=== PATIENT | male | born 1940 | race Caucasian/White ===

== ENCOUNTER 2017-05-21 19:16 | Emergency (ER) | payer MEDICARE, OTHER ==
[2017-05-21] MEDS: NS 500 ML IV ×2 (20:17→20:38)
[2017-05-21 20:23] LABS: ALBUMIN 3.6 GM/DL (3.2-5.2); ALBUMIN/GLOBULIN RATIO 1.06 (1.00-1.93); ALKALINE PHOSPHATASE 89 U/L (45-117); ALT/SGPT 20 U/L (12-78); ANION GAP 8 MEQ/L (8-16); AST/SGOT 9 U/L (7-37); BILIRUBIN,DIRECT 0.3 MG/DL (0.0-0.2); BLOOD UREA NITROGEN 15 MG/DL (7-18); CALCIUM LEVEL 8.7 MG/DL (8.8-10.2); CARBON DIOXIDE LEVEL 27 MEQ/L (21-32); CHLORIDE LEVEL 104 MEQ/L (98-107); CPK CREATINE PHOSPHOKINASE 39 U/L (39-308); CREATININE FOR GFR 0.97 MG/DL (0.70-1.30); GLOMERULAR FILTRATION RATE > 60.0 (>42); GLUCOSE, FASTING 141 MG/DL (70-100); LIPASE 44 U/L (73-393); POTASSIUM SERUM 3.8 MEQ/L (3.5-5.1); SODIUM LEVEL 139 MEQ/L (136-145); TROPONIN I < 0.02 NG/ML (< 0.10)
[2017-05-21 20:24] LABS: MB/CK RELATIVE INDEX 2.56 (< OR =4)
[2017-05-21 20:29] LABS: BASO % 0.2 % (0.0-1.0); EOS % 0.6 % (0.0-3.0); HEMATOCRIT 42.8 % (42.0-52.0); HEMOGLOBIN 14.7 g/dl (14.0-18.0); IMMATURE GRANULOCYTE % 0.4 % (0-3.0); LYMPH # 0.4 10^3/uL (1.5-4.5); LYMPH % 7.2 % (24.0-44.0); MEAN CORPUSCULAR HEMOGLOBIN 30.3 pg (27.0-33.0); MEAN CORPUSCULAR HGB CONC 34.3 g/dl (32.0-36.5); MEAN CORPUSCULAR VOLUME 88.2 fl (80.0-96.0); MONO # 0.6 10^3/uL (0.0-0.8); MONO % 11.9 % (0.0-5.0); NEUTROPHILS # 3.9 10^3/uL (1.8-7.7); NEUTROPHILS % 79.7 % (36.0-66.0); PLATELET COUNT, AUTOMATED 142 10^3/uL (150-450); RED BLOOD COUNT 4.85 10^6/uL (4.30-6.10); RED CELL DISTRIBUTION WIDTH 12.1 % (11.5-14.5); WHITE BLOOD COUNT 4.9 10^3/uL (4.0-10.0)
[2017-05-21 20:55] LABS: INFLUENZA A AMPLIFICATION NEGATIVE (NEGATIVE); INFLUENZA B AMPLIFICATION NEGATIVE (NEGATIVE)
== END 2017-05-21 21:51 | disposition home or self-care (01) ==
LOC: M ED 19:16
DX: K52.9 Noninfective gastroenteritis and colitis, unspecified (principal); E86.9 Volume depletion, unspecified; I10 Essential (primary) hypertension; E78.5 Hyperlipidemia, unspecified; Z79.899 Other long term (current) drug therapy; Z79.82 Long term (current) use of aspirin; Z79.890 Hormone replacement therapy
CPT/HCPCS: 70450

== ENCOUNTER 2018-06-29 18:52 | Emergency (ER) | payer MEDICARE, OTHER ==
[~2018-06-29] VITALS: Ht 170.2 cm; Wt 84.1 kg
[~2018-06-29 18:52] MED LIST: ASPI81TA85 PO; CYAN1000VL; FOLI1TAB11; LEVO112T2; LOSA50TA88; PRAV20TA2 PO
[2018-06-29 19:45] LABS: BASO % 0.4 % (0.0-1.0); EOS # 0.1 10^3/uL (0.0-0.50); EOS % 1.7 % (0.0-3.0); HEMATOCRIT 41.5 % (42.0-52.0); HEMOGLOBIN 14.4 g/dl (13.5-17.5); LYMPH # 0.6 10^3/uL (1.5-4.5); LYMPH % 13.3 % (24.0-44.0); MEAN CORPUSCULAR HEMOGLOBIN 30.8 pg (27.0-33.0); MEAN CORPUSCULAR HGB CONC 34.7 g/dl (32.0-36.5); MEAN CORPUSCULAR VOLUME 88.9 fl (80.0-96.0); MONO # 0.7 10^3/uL (0.0-0.8); MONO % 14.8 % (0.0-5.0); NEUTROPHILS # 3.3 10^3/uL (1.8-7.7); NEUTROPHILS % 69.4 % (36.0-66.0); PLATELET COUNT, AUTOMATED 153 10^3/uL (150-450); RED BLOOD COUNT 4.67 10^6/uL (4.30-6.10); WHITE BLOOD COUNT 4.7 10^3/uL (4.0-10.0)
[2018-06-29] MEDS ORDERED: SIMETHICONE 80 MG CHEW TAB PO ONE (19:45)
[2018-06-29] MEDS ORDERED: PANTOPRAZOLE 40MG INJ (PROTONIX) (C9113) IV ONE (19:45)
[2018-06-29] MEDS ORDERED: GI COCKTAIL 50ML BTL(HYOSCYAMINE/MAALOX/LIDOCAINE VISCOUS)(1:3:1) PO ONE (19:45)
--- NOTE | 2018-06-29 19:52 | REP ---
Portable chest, 07:38 p.m., single AP sitting view: Comparison is 01/08/2016. The lung salgado are clear. Cardiac size is upper normal. There are sternotomy wires, unchanged. The isak, mediastinum, skeletal structures are unremarkable. Impression: Essentially negative portable chest. Electronically Signed by Vaibhav Armenta MD 06/29/2018 07:44 P
[2018-06-29 20:14] LABS: ALBUMIN 3.9 GM/DL (3.2-5.2); ALT/SGPT 31 U/L (12-78); BILIRUBIN,DIRECT 0.2 MG/DL (0.0-0.2); BILIRUBIN,TOTAL 0.7 MG/DL (0.2-1.0); BLOOD UREA NITROGEN 18 MG/DL (7-18); CALCIUM LEVEL 9.1 MG/DL (8.8-10.2); CARBON DIOXIDE LEVEL 24 MEQ/L (21-32); CHLORIDE LEVEL 109 MEQ/L (98-107); CK-MB VALUE MASS < 1.0 NG/ML (<3.6); CPK CREATINE PHOSPHOKINASE 72 U/L (39-308); CREATININE FOR GFR 0.99 MG/DL (0.70-1.30); GLOMERULAR FILTRATION RATE > 60.0 (>42); GLUCOSE, FASTING 115 MG/DL (70-100); LIPASE 75 U/L (73-393); MB/CK RELATIVE INDEX 1.39 (< OR =4); POTASSIUM SERUM 4.1 MEQ/L (3.5-5.1); SODIUM LEVEL 142 MEQ/L (136-145); TOTAL PROTEIN 6.6 GM/DL (6.4-8.2); TROPONIN I < 0.02 NG/ML (< 0.10)
[2018-06-29] MEDS ORDERED: ISOVUE-370 76% 100ML VIAL (Q9967) As Ordered ONE (20:44)
--- NOTE | 2018-06-29 21:50 | ECGEPIP ---
Stationary ECG Study [facility] - ED Test Date: 2018-06-29 Pat Name: MONIKA TODD Department: Room: - Gender: M Media Promoter: MIGUEL : 1940 Requested By: Yajaira Pickard Order Number: [id number] Reading MD: Cora Uriostegui Measurements Intervals [place] Rate: 69 P: 52 LA: 153 QRS: 15 QRSD: 104 T: 95 QT: 396 QTc: 425 Interpretive Statements SINUS RHYTHM ST DEVIATION AND MODERATE T-WAVE ABNORMALITY, CONSIDER ISCHEMIA SIMILAR 10/05/12 Electronically Signed On 06-29-2018 21:50:17 EDT by Cora Uriostegui
--- NOTE | 2018-06-29 22:00 | REPVR ---
EXAM: CT Angiography Chest With Contrast EXAM DATE/TIME: 06/29/2018 8:55 PM CLINICAL HISTORY: 77 years old, male; Pain; Chest pain; Additional info: Cp TECHNIQUE: Imaging protocol: Axial computed tomographic angiography images of the chest with intravenous contrast using CT angiography protocol. Coronal and sagittal reformatted images were created and reviewed. 3D rendering: MIP reconstructed images were created and reviewed. Radiation optimization: All CT scans at this facility use at least one of these dose optimization techniques: automated exposure control; mA and/or kV adjustment per patient size (includes targeted exams where dose is matched to clinical indication); or iterative reconstruction. Contrast material: ISOVUE 370 Contrast volume: 75 ml Contrast route: IV COMPARISON: CR PORTABLE CHEST X-RAY 06/29/2018 7:37 PM FINDINGS: Pulmonary arteries: There is opacification of the pulmonary arteries with no evidence of pulmonary embolus. Aorta: There is opacification of the aorta which appears intact. Superior vena cava: 1 CM lymph node between the superior vena cava and trachea. Thyroid: Normal appearing thyroid. Lungs: There is a 4 mm and a 9 mm density of the right lung which may be the result of scarring or noncalcified granulomas. To exclude any possibility of a malignant nodule recommend followup CT scan in 6 months for reevaluation and to document stability. There is also a small 4 mm density in the left upper lung. Pleural space: No pneumothorax. No pleural effusion. Heart: The heart is normal in size and there is no evidence of pericardial effusion. IMPRESSION: 1. There is no evidence of pulmonary embolus. 2. 9 mm density and two 4 mm density or identified and possibly benign nodular densities. However to exclude any possibility of malignant nodule recommend followup CT scan in 6 months to document stability. Electronically signed by: Shaheed Booth On 06/29/2018 22:00:33 PM
[2018-06-29 22:41] LABS: CPK CREATINE PHOSPHOKINASE 60 U/L (39-308); MB/CK RELATIVE INDEX 1.67 (< OR =4); TROPONIN I < 0.02 NG/ML (< 0.10)
[2018-06-29] MEDS ORDERED: PROT1TAB2 PO (22:57)
[2018-06-29] MEDS ORDERED: SIME180C PO (22:57)
[2018-06-29 23:00] VITALS: BP 148/82
--- NOTE | 2018-06-30 15:31 | ECGEPIP ---
Stationary ECG Study [facility] - ED Test Date: 2018-06-29 Pat Name: MONIKA TODD Department: Room: - Gender: M Pharm Spec: gt : 1940 Requested By: Yajaira Pickard Order Number: [id number] Reading MD: Ben Harris Measurements Intervals [place] Rate: 63 P: 53 DC: 142 QRS: 13 QRSD: 108 T: 110 QT: 372 QTc: 382 Interpretive Statements SINUS RHYTHM ST DEVIATION AND MODERATE T-WAVE ABNORMALITY, CONSIDER ANTEROLATERAL ISCHEMIA No substantial change from tracing done 06-29-18 Electronically Signed On 06-30-2018 15:31:01 EDT by Ben Harris
--- NOTE | 2018-07-01 11:15 | ED PDOC ---
Post-Departure Follow-Up arielle louis faxed formal report of cta chest for fu Yajaira Castrejon MD Jul 01, 2018 11:15
== END 2018-06-29 23:09 | disposition home or self-care (01) ==
LOC: M ED 18:52
DX: K21.9 Gastro-esophageal reflux disease without esophagitis (principal); R91.1 Solitary pulmonary nodule; I10 Essential (primary) hypertension; E78.5 Hyperlipidemia, unspecified; Z95.1 Presence of aortocoronary bypass graft; Z79.899 Other long term (current) drug therapy; Z79.82 Long term (current) use of aspirin
CPT/HCPCS: 71045; 71275; 80048; 80076; 82550; 82553; 83690; 84484; 85025; 93005; 93041; 94760; 96374; 99285; C9113; Q9967

== ENCOUNTER → 2018-08-17 | Outpatient (CLI) | payer MEDICARE, OTHER ==
[~2018-08-17] MED LIST changes: +FISH1000 PO; +MULTCAP PO; +OMEP40CA2 PO; +OSTETAB2 PO; +PROT1TAB2 PO; +SIME180C PO
--- NOTE | 2018-08-17 09:12 | REP ---
RIGHT UPPER QUADRANT ULTRASOUND: Real-time sonographic evaluation of the right upper quadrant performed. Multiple gallstones are seen in the gallbladder. The gallbladder wall is thickened up to 7 mm. No free fluid is seen. There is no intrahepatic or extrahepatic biliary dilatation, common bile duct measuring 4 mm in diameter. The liver and pancreas demonstrate no gross mass, pancreas is not well seen due to overlying bowel gas. Right kidney demonstrates no hydronephrosis with normal size 10.8 cm in length. Visualized abdominal aorta is normal in caliber. IMPRESSION: Multiple gallstones in the gallbladder with diffuse gallbladder wall thickening up to 7 mm. No free fluid. No biliary dilatation. Patient is not tender at the site of the gallbladder with transducer pressure. Findings may represent chronic cholecystitis. Electronically Signed by Vaibhav Abrams MD 08/17/2018 02:10 P
== END ==
LOC: M RAD 06:16
PROVIDERS: ATTEND Internal Medicine Gastroenterology
DX: K80.20 Calculus of gallbladder without cholecystitis without obstruction (principal)

== ENCOUNTER 2018-09-12 09:39 | Day surgery (SDC) | payer MEDICARE, OTHER ==
[~2018-09-12] VITALS: Ht 167.6 cm; Wt 82.9 kg
[2018-09-12] MEDS: NS 1,000 ML IV ONE (06:45)
[2018-09-12] MEDS ORDERED: PROPOFOL 200 MG/20 ML VIAL As Ordered ONE ×2 (10:41→11:00)
[2018-09-12] MEDS ORDERED: LIDOCAINE 2% INJ 100 MG/5 ML SDV (FOR ANES.) As Ordered ONE (10:41)
--- NOTE | 2018-09-12 11:54 | ROOR ---
Patient Name: Qasim Garza Procedure Date: 09/12/2018 11:11 AM Date of : 1940 Age: 77 Room: [facility] Gender: Male Note Status: Finalized Procedure: Upper GI endoscopy Indications: Dyspepsia Providers: Corby Messina MD Referring MD: KANG CAMPOS NP Requesting Provider: Medicines: Monitored Anesthesia Care Complications: No immediate complications. Procedure: Pre-Anesthesia Assessment: - Prior to the procedure, a History and Physical was performed, and patient medications and allergies were reviewed. The patient is competent. The risks and benefits of the procedure and the sedation options and risks were discussed with the patient. All questions were answered and informed consent was obtained. Patient identification and proposed procedure were verified by the physician, the nurse and the anesthesiologist in the procedure room. Airway Examination: normal oropharyngeal airway and neck mobility. Respiratory Examination: clear to auscultation. CV Examination: normal. Prophylactic Antibiotics: The patient does not require prophylactic antibiotics. Prior Anticoagulants: The patient has taken no previous anticoagulant or antiplatelet agents. ASA Grade Assessment: III - A patient with severe systemic disease. After reviewing the risks and benefits, the patient was deemed in satisfactory condition to undergo the procedure. The anesthesia plan was to use monitored anesthesia care (MAC). Immediately prior to administration of medications, the patient was re-assessed for adequacy to receive sedatives. The heart rate, respiratory rate, oxygen saturations, blood pressure, adequacy of pulmonary ventilation, and response to care were monitored throughout the procedure. The physical status of the patient was re-assessed after the procedure. The Endoscope was introduced through the mouth, and advanced to the second part of duodenum. The upper GI endoscopy was accomplished without difficulty. The patient tolerated the procedure well. Findings: The Z-line was regular and was found 40 cm from the incisors. LA Grade A (one or more mucosal breaks less than 5 mm, not extending between tops of 2 mucosal folds) esophagitis with no bleeding was found in the distal esophagus. Biopsies were taken with a cold forceps for histology. Verification of patient identification for the specimen was done by the physician and nurse using the patient's name, date and medical record number. Estimated blood loss was minimal. Patchy moderate inflammation characterized by erosions, erythema and granularity was found in the gastric body and in the gastric antrum. Biopsies were taken with a cold forceps for Helicobacter pylori testing. A few 6 mm sessile polyps with no stigmata of recent bleeding were found in the gastric fundus and in the gastric body. Biopsies were taken with a cold forceps for histology. No gross lesions were noted in the duodenal bulb and in the second portion of the duodenum. Impression: - Z-line regular, 40 cm from the incisors. - LA Grade A reflux esophagitis. Biopsied. - Gastritis. Biopsied. - A few gastric polyps. Biopsied. - No gross lesions in the duodenal bulb and in the second portion of the duodenum. Recommendation: - Patient has a contact number available for emergencies. The signs and symptoms of potential delayed complications were discussed with the patient. Return to normal activities tomorrow. Written discharge instructions were provided to the patient. - High fiber diet. - Continue present medications. - Follow an antireflux regimen. - Await pathology results. - Telephone GI clinic for pathology results 1 - 2 weeks. Please call GI clinic @ [phone] for apppointment date and time. - Return to primary care physician. Corby Messina MD Corby Messina MD 09/12/2018 11:53:53 AM Electronically signed by Corby Messina MD Number of Addenda: 0 Note Initiated On: 09/12/2018 11:11 AM Estimated Blood Loss: Estimated blood loss was minimal.
--- NOTE | 2018-09-12 11:56 | ROOR ---
Patient Name: Qasim Garza Procedure Date: 09/12/2018 11:13 AM Date of : 1940 Age: 77 Room: [facility] Gender: Male Note Status: Finalized Procedure: Colonoscopy Indications: Screening for colorectal malignant neoplasm Providers: Corby Messina MD Referring MD: KANG CAMPOS NP Requesting Provider: Medicines: Monitored Anesthesia Care Complications: No immediate complications. Procedure: Pre-Anesthesia Assessment: - Prior to the procedure, a History and Physical was performed, and patient medications and allergies were reviewed. The patient is competent. The risks and benefits of the procedure and the sedation options and risks were discussed with the patient. All questions were answered and informed consent was obtained. Patient identification and proposed procedure were verified by the physician, the nurse and the anesthesiologist in the procedure room. Mental Status Examination: alert and oriented. Airway Examination: normal oropharyngeal airway and neck mobility. Respiratory Examination: clear to auscultation. CV Examination: normal. Prophylactic Antibiotics: The patient does not require prophylactic antibiotics. Prior Anticoagulants: The patient has taken no previous anticoagulant or antiplatelet agents. ASA Grade Assessment: III - A patient with severe systemic disease. After reviewing the risks and benefits, the patient was deemed in satisfactory condition to undergo the procedure. The anesthesia plan was to use monitored anesthesia care (MAC). Immediately prior to administration of medications, the patient was re-assessed for adequacy to receive sedatives. The heart rate, respiratory rate, oxygen saturations, blood pressure, adequacy of pulmonary ventilation, and response to care were monitored throughout the procedure. The physical status of the patient was re-assessed after the procedure. The Colonoscope was introduced through the anus and advanced to the terminal ileum, with identification of the appendiceal orifice and IC valve. The colonoscopy was performed without difficulty. The patient tolerated the procedure well. The quality of the bowel preparation was good. The terminal ileum, ileocecal valve, appendiceal orifice, and rectum were photographed. Scope insertion time was 3 minutes. Scope withdrawal time was 8 minutes. The total duration of the procedure was 11 minutes. Findings: The perianal and digital rectal examinations were normal. Two sessile polyps were found in the ascending colon and cecum. The polyps were 6 to 8 mm in size. These polyps were removed with a cold snare. Resection and retrieval were complete. Verification of patient identification for the specimen was done by the physician and nurse using the patient's name, date and medical record number. Estimated blood loss was minimal. Multiple small and large-mouthed diverticula were found from sigmoid to descending colon. There was no evidence of diverticular bleeding. Non-bleeding external and internal hemorrhoids were found during retroflexion. The hemorrhoids were medium-sized. Impression: - Two 6 to 8 mm polyps in the ascending colon and in the cecum, removed with a cold snare. Resected and retrieved. - Moderate diverticulosis from sigmoid to descending colon. There was no evidence of diverticular bleeding. - Non-bleeding external and internal hemorrhoids. Recommendation: - Patient has a contact number available for emergencies. The signs and symptoms of potential delayed complications were discussed with the patient. Return to normal activities tomorrow. Written discharge instructions were provided to the patient. - High fiber diet. - Continue present medications. - Await pathology results. - Repeat colonoscopy in 5-10 years for surveillance based on pathology results and depending on clinical and functional status. - Telephone GI clinic for pathology results 1 - 2 weeks. Please call GI clinic @ [phone] for apppointment date and time. - Return to primary care physician. Corby Messina MD Corby Messina MD 09/12/2018 11:56:36 AM Electronically signed by Corby Messina MD Number of Addenda: 0 Note Initiated On: 09/12/2018 11:13 AM Estimated Blood Loss: Estimated blood loss was minimal.
[2018-09-12 12:15] VITALS: BP 115/73
== END 2018-09-12 12:21 | disposition home or self-care (01) ==
LOC: M OPP 09:39
PROVIDERS: ATTEND Internal Medicine Gastroenterology
DX: D12.0 Benign neoplasm of cecum (principal); D12.2 Benign neoplasm of ascending colon; K57.30 Diverticulosis of large intestine without perforation or abscess without bleeding; K64.8 Other hemorrhoids; K21.0 Gastro-esophageal reflux disease with esophagitis; K29.70 Gastritis, unspecified, without bleeding; K31.7 Polyp of stomach and duodenum; R10.13 Epigastric pain; Z12.11 Encounter for screening for malignant neoplasm of colon

== ENCOUNTER 2018-11-22 10:09 | Day surgery (SDC) | payer MEDICARE, OTHER ==
[~2018-11-22] VITALS: Ht 167.6 cm; Wt 80.0 kg
[~2018-11-22 10:09] MED LIST changes: +CLOP75TA2 PO; +LR 1,000 ML IV ONE
[2018-11-22] MEDS ORDERED: BUPIVACAINE HCL 0.25% 30 ML VIAL As Ordered ONE (17:02)
[2018-11-22] MEDS ORDERED: ROCURONIUM BROMIDE 50 MG/5 ML VIAL As Ordered ONE ×2 (18:02→18:32)
[2018-11-22] MEDS ORDERED: MIDAZOLAM INJ 2 MG/2 ML VIAL (J2250) As Ordered ONE (18:02)
[2018-11-22] MEDS ORDERED: dexameTHASONE 4 MG/ML 1ML VIAL (J1100) As Ordered ONE (18:02)
[2018-11-22] MEDS ORDERED: PROPOFOL 200 MG/20 ML VIAL As Ordered ONE ×2 (18:02→18:55)
[2018-11-22] MEDS ORDERED: LIDOCAINE 2% INJ 100 MG/5 ML SDV (FOR ANES.) As Ordered ONE (18:02)
[2018-11-22] MEDS ORDERED: fentaNYL 250 MCG/5 ML INJECTION (J3010) As Ordered ONE (18:02)
[2018-11-22] MEDS ORDERED: ONDANSETRON 4MG/2ML VIAL (J2405) As Ordered ONE (18:02)
[2018-11-22] MEDS ORDERED: PHENYLephrine HCL 500 MCG/5 ML (100MCG/ML) SYRINGE (J2370) As Ordered ONE (18:10)
[2018-11-22] MEDS ORDERED: ePHEDrine SULFATE 25 MG/5 ML(5MG/ML) SYRINGE As Ordered ONE (18:10)
[2018-11-22] MEDS ORDERED: SUGAMMADEX SODIUM 500 MG/5 ML VIAL (BRIDION) As Ordered ONE (18:11)
[2018-11-22] MEDS ORDERED: ACETAMINOPHEN 1000MG 100ML IV BTL (OFIRMEV) (J0131 PER 10MG) As Ordered ONE (18:15)
[2018-11-22] MEDS ORDERED: fentaNYL 100 MCG/2 ML INJECTION (J3010) IV PRN (20:00)
[2018-11-22] MEDS ORDERED: oxyCODONE 5MG TAB PO PRN (20:00)
[2018-11-22] MEDS ORDERED: LR 1,000 ML IV SCH (20:00)
[2018-11-22] MEDS ORDERED: ONDANSETRON 4MG/2ML VIAL (J2405) IV PRN (20:00)
[2018-11-22] MEDS ORDERED: MORPHINE 10 MG/ML 1ML VIAL (J2270) IV PRN (20:00)
[2018-11-22] MEDS ORDERED: NORCO, ANEXSIA 5/325MG TABLET (HYDROcodone/ACETAMINOPHEN) PO PRN (21:00)
[2018-11-22] MEDS ORDERED: ACETAMINOPHEN TAB 650MG DOSE (2X325MG) PO PRN (21:00)
[2018-11-22 21:05] VITALS: BP 117/70
--- NOTE | 2018-11-24 11:15 | RO ---
DATE OF PROCEDURE: 11/22/2018 PREOPERATIVE DIAGNOSIS: Symptomatic gallstones. POSTOPERATIVE DIAGNOSIS: Symptomatic gallstones with extensive adhesions. PROCEDURE PERFORMED: Robotic-assisted laparoscopic cholecystectomy with lysis of adhesions. SURGEON: Dr. Conroy QUALITY ASSURANCE INTERN: ANESTHESIA: General. INDICATIONS FOR THE PROCEDURE: Patient is a 78-year-old man who had presented to the hospital with some severe epigastric pain several months ago. He underwent an evaluation that included a cardiac workup. He was found to have cholelithiasis with a thickened gallbladder at the time. He has now come for a laparoscopic cholecystectomy. OPERATIVE PROCEDURE: The patient was placed supine on the operating table. He was placed under general endotracheal anesthesia. The patient's abdomen was prepped and draped in a sterile fashion. 0.25% Marcaine was infiltrated at the trocar sites as needed. A short incision was made in the left upper quadrant and a Veress needle was inserted. After a positive hanging drop test, the abdomen was insufflated with carbon dioxide gas. An 8-mm Devin robotic Visiport was placed without difficulty. Initial examination showed no significant intra-abdominal adhesions. Three additional ports were placed across the abdomen just above into the left of the umbilicus, just below and to the right of the umbilicus and in the right lower quadrant. The patient was tilted to a reverse Trendelenburg position and rolled slightly to the left. The patient's cart of the da Devin XI robot was brought into position and the camera port was docked. Targeting took place and the additional trocars were then docked as well. Instruments were inserted. I then moved to the control console and proceeded with the robotic portion of the procedure. The edge of the liver was elevated and the fundus of the gallbladder was partially seen. The gallbladder was completely encased and adherent fibrofatty tissue consistent with a past history of acute cholecystitis. The fibrofatty tissue was carefully dissected free from the gallbladder beginning at the fundus and extending to the body and neck region. The dissection of the gallbladder neck was then undertaken. Fibrofatty tissues were opened using the hook cautery. The cystic duct and the cholecystic artery were both clearly identified. Both structures were doubly clipped with Hem-o-rita clips and divided with scissors. The gallbladder was then dissected free from the gallbladder bed using the hook cautery. The gallbladder was not perforated. The gallbladder was placed in an Endopouch. The right upper quadrant was inspected and there was no evidence of bleeding or bile leak. The robot was undocked and the patient was returned to a flat position. The abdomen was deflated and the trocars were all removed. The gallbladder was recovered through the medial right lower quadrant port, which required extending the skin incision and opening the anterior and posterior fascia of the rectus sheath. There were two large stones palpable in the gallbladder. The gallbladder wall appeared somewhat thickened but not acutely inflamed. The posterior sheath was closed with a running #2-0 Vicryl and the anterior sheath was also closed with Vicryl. The skin incisions were all closed with buried #5-0 Vicryl and Steri-Strips. Light dressings were applied. The patient tolerated the procedure well without apparent complication. He was awakened in the operating room, extubated and moved to the recovery room in stable condition.
== END 2018-11-22 21:15 | disposition home or self-care (01) ==
LOC: M SDC 10:09
PROVIDERS: ATTEND Surgery
DX: K80.10 Calculus of gallbladder with chronic cholecystitis without obstruction (principal); I25.10 Atherosclerotic heart disease of native coronary artery without angina pectoris; I25.2 Old myocardial infarction; E03.9 Hypothyroidism, unspecified; E78.5 Hyperlipidemia, unspecified; D64.9 Anemia, unspecified; Z95.1 Presence of aortocoronary bypass graft; Z79.82 Long term (current) use of aspirin; Z79.02 Long term (current) use of antithrombotics/antiplatelets; Z79.899 Other long term (current) drug therapy
CPT/HCPCS: 47562; 88304; J0131; J1100; J2250; J2370; J2405; J3010

== ENCOUNTER → 2018-11-30 | Outpatient (CLI) | payer MEDICARE, OTHER ==
[~2018-11-30] MED LIST changes: +ACET-897 PO; +AZIT500T2 PO; +CEFD1CAP8 PO; -CYAN1000VL; +CYAN1000VL IM; +FIBE625T PO; -FOLI1TAB11; +FOLI1TAB11 PO; -LEVO112T2; +LEVO112T2 PO; -LOSA50TA88; +LOSA50TA88 PO; -LR 1,000 ML IV ONE; +PRED5PAK2 PO
[2018-11-30 10:42] LABS: BASO % 0.3 % (0.0-1.0); EOS # 0.1 10^3/uL (0.0-0.5); EOS % 2.5 % (0.0-3.0); HEMATOCRIT 36.5 % (42.0-52.0); HEMOGLOBIN 12.7 g/dl (13.5-17.5); LYMPH % 5.3 % (24.0-44.0); MEAN CORPUSCULAR HEMOGLOBIN 29.7 pg (27.0-33.0); MEAN CORPUSCULAR HGB CONC 34.8 g/dl (32.0-36.5); MEAN CORPUSCULAR VOLUME 85.5 fl (80.0-96.0); MONO # 0.5 10^3/uL (0.0-0.8); NEUTROPHILS # 2.8 10^3/uL (1.5-8.5); NEUTROPHILS % 76.6 % (36.0-66.0); PLATELET COUNT, AUTOMATED 147 10^3/uL (150-450); RED BLOOD COUNT 4.27 10^6/uL (4.30-6.10); WHITE BLOOD COUNT 3.6 10^3/uL (4.0-10.0)
[2018-11-30 11:15] LABS: ALT/SGPT 39 U/L (12-78); BILIRUBIN,TOTAL 0.5 MG/DL (0.2-1.0); BLOOD UREA NITROGEN 16 MG/DL (7-18); CALCIUM LEVEL 8.6 MG/DL (8.8-10.2); CARBON DIOXIDE LEVEL 23 MEQ/L (21-32); CHLORIDE LEVEL 106 MEQ/L (98-107); CREATININE FOR GFR 0.98 MG/DL (0.70-1.30); GLOMERULAR FILTRATION RATE > 60.0 (>42); GLUCOSE, FASTING 122 MG/DL (70-100); POTASSIUM SERUM 3.8 MEQ/L (3.5-5.1); SODIUM LEVEL 139 MEQ/L (136-145); TOTAL PROTEIN 5.6 GM/DL (6.4-8.2)
[2018-11-30 11:29] LABS: LYMPH # 0.2 10^3/uL (1.5-5.0)
== END ==
LOC: M LAB 10:15
PROVIDERS: ATTEND Nurse Practitioner
DX: R50.9 Fever, unspecified (principal)

== ENCOUNTER 2018-12-04 18:45 | Inpatient (IN) | payer MEDICARE, OTHER ==
[~2018-12-04] VITALS: Ht 167.6 cm; Wt 76.0 kg
[~2018-12-04 18:45] MED LIST changes: -ACET-897 PO; -AZIT500T2 PO; -CEFD1CAP8 PO; -FIBE625T PO; -PRED5PAK2 PO
[2018-12-04] MEDS ORDERED: FIBE625T PO (20:03)
[2018-12-04] MEDS ORDERED: ACET-897 PO (20:12)
[2018-12-04] MEDS ORDERED: NS 1,000 ML IV ONE (20:15)
[2018-12-04] MEDS ORDERED: ACETAMINOPHEN 325 MG TAB PO ONE (20:15)
[2018-12-04 20:17] LABS: BASO % 0.2 % (0.0-1.0); EOS # 0.1 10^3/uL (0.0-0.5); EOS % 2.3 % (0.0-3.0); HEMOGLOBIN 11.9 g/dl (13.5-17.5); LYMPH % 2.7 % (24.0-44.0); MEAN CORPUSCULAR HEMOGLOBIN 29.5 pg (27.0-33.0); MEAN CORPUSCULAR VOLUME 86.6 fl (80.0-96.0); MONO # 0.4 10^3/uL (0.0-0.8); MONO % 7.3 % (0.0-5.0); NEUTROPHILS # 4.2 10^3/uL (1.5-8.5); NEUTROPHILS % 87.3 % (36.0-66.0); PLATELET COUNT, AUTOMATED 236 10^3/uL (150-450); RED BLOOD COUNT 4.04 10^6/uL (4.30-6.10); WHITE BLOOD COUNT 4.8 10^3/uL (4.0-10.0)
[2018-12-04 20:32] LABS: INR 1.19; PROTHROMBIN TIME 14.8 SECONDS (11.8-14.0)
[2018-12-04 20:33] LABS: PARTIAL THROMBOPLASTIN TIME 38.8 SECONDS (25.0-38.4)
[2018-12-04 20:40] LABS: ALBUMIN 2.9 GM/DL (3.2-5.2); ALT/SGPT 61 U/L (12-78); BILIRUBIN,DIRECT 0.3 MG/DL (0.0-0.2); BILIRUBIN,TOTAL 0.7 MG/DL (0.2-1.0); BLOOD UREA NITROGEN 14 MG/DL (7-18); CALCIUM LEVEL 8.8 MG/DL (8.8-10.2); CARBON DIOXIDE LEVEL 27 MEQ/L (21-32); CHLORIDE LEVEL 101 MEQ/L (98-107); CREATININE FOR GFR 0.89 MG/DL (0.70-1.30); GLOMERULAR FILTRATION RATE > 60.0 (>42); GLUCOSE, FASTING 106 MG/DL (70-100); LIPASE 108 U/L (73-393); POTASSIUM SERUM 4.5 MEQ/L (3.5-5.1); SODIUM LEVEL 136 MEQ/L (136-145); TOTAL PROTEIN 5.9 GM/DL (6.4-8.2)
[2018-12-04 20:44] LABS: LYMPH # 0.1 10^3/uL (1.5-5.0)
[2018-12-04 20:49] LABS: INFLUENZA A AMPLIFICATION NEGATIVE (NEGATIVE); INFLUENZA B AMPLIFICATION NEGATIVE (NEGATIVE)
[2018-12-04] MEDS ORDERED: ISOVUE-370 76% 100ML VIAL (Q9967) As Ordered ONE (21:21)
--- NOTE | 2018-12-04 22:05 | REPVR ---
EXAM: CT Chest With Contrast EXAM DATE/TIME: 12/04/2018 9:29 PM CLINICAL HISTORY: 78 years old, male; Fever; Additional info: Fever post delaney TECHNIQUE: Imaging protocol: Computed tomography of the chest with intravenous contrast. Radiation optimization: All CT scans at this facility use at least one of these dose optimization techniques: automated exposure control; mA and/or kV adjustment per patient size (includes targeted exams where dose is matched to clinical indication); or iterative reconstruction. Contrast material: ISOVUE 370; Contrast volume: 100 ml; Contrast route: IV; COMPARISON: CT ANGIO CHEST 06/29/2018 8:48 PM FINDINGS: Lungs: Patchy nonspecific ground-glass density within the lungs bilaterally. This is new compared to the prior study. Differential considerations include interstitial edema, atypical infection, and pneumonitis. Scattered lung nodules are identified bilaterally, with an overall progression compared to the previous exam. One of the larger nodules is visualized on series 201, image 37 within the right lower lobe measuring 8-9 mm. Pleural space: No pneumothorax. No pleural effusion. Heart: Coronary artery calcification. No cardiomegaly. Aorta: No aortic aneurysm. Lymph nodes: There is mild mediastinal and bilateral hilar lymphadenopathy. In the precarinal region on the right side, there is a 1.4 x 1.2 cm lymph node, without progression in size. Bones/joints: Hypertrophic degenerative changes are noted within the spine. Sternotomy wires are identified. Soft tissues: No acute abnormality. Gallbladder and bile ducts: The gallbladder is absent. There is stranding within the gallbladder fossa, likely due to recent postoperative change or inflammation. Pancreas: There is atrophy of the pancreas. Spleen: There is mild splenomegaly. The spleen measures 13.2 cm in the AP dimension. IMPRESSION: 1. Patchy nonspecific ground-glass density within the lungs bilaterally. This is new compared to the prior study. Differential considerations include interstitial edema, atypical infection, and pneumonitis. 2. Scattered lung nodules are identified bilaterally, with an overall progression compared to the previous exam. Malignant nodules cannot be excluded. One of the larger nodules is visualized within the right lower lobe measuring 8-9 mm. For patients at low risk (minimal or absent history of smoking and of other known risk factors), recommend CT at 3-6 months, then consider CT at 18-24 months. For patients at high risk (history of smoking or of other known risk factors), recommend CT at 3-6 months, then CT at 18-24 months. (Wali et al., Fleischner Society, 2017) 3. The gallbladder is absent. There is stranding within the gallbladder fossa, likely due to recent postoperative change or inflammation. 4. There is mild splenomegaly. 5. Additional findings described above. Electronically signed by: Keyon Mera On 12/04/2018 22:05:25 PM
--- NOTE | 2018-12-04 22:14 | REPVR ---
EXAM: CT Abdomen and Pelvis With Contrast EXAM DATE/TIME: 12/04/2018 9:29 PM CLINICAL HISTORY: 78 years old, male; Fever; Prior surgery; Surgery date: 3-7 days post-operative; Additional info: Fever since delaney TECHNIQUE: Imaging protocol: Computed tomography of the abdomen and pelvis with intravenous contrast. Radiation optimization: All CT scans at this facility use at least one of these dose optimization techniques: automated exposure control; mA and/or kV adjustment per patient size (includes targeted exams where dose is matched to clinical indication); or iterative reconstruction. Contrast material: ISOVUE 370; Contrast volume: 100 ml; Contrast route: IV; COMPARISON: No relevant prior studies available. FINDINGS: Liver: There is mild hypodense fatty infiltration of the liver. Mild hepatomegaly. The liver measures 18.3 cm in length. Gallbladder and bile ducts: The gallbladder is absent. There is stranding within the gallbladder fossa, likely due to recent postoperative change or inflammation. Pancreas: There is atrophy of the pancreas. Within the tail of the pancreas, there is a nodular focus of isodensity measuring 1.4 x 1.0 cm. This may represent an area of the pancreas without fatty infiltration, although a pancreatic lesion is difficult to exclude. Spleen: There is mild splenomegaly. The spleen measures 13.2 cm in the AP dimension. A small calcification is identified within the spleen. Adrenals: No mass. Kidneys and ureters: There is mild lobulation of the right kidney. No hydronephrosis bilaterally. No renal mass visualized. Stomach and bowel: Colonic diverticula are identified, without acute inflammatory stranding of the adjacent mesentery. Evaluation of bowel is limited by the absence of oral contrast. New line no bowel obstruction. Appendix: No evidence of appendicitis. Intraperitoneal space: No free air. No significant fluid collection. Vasculature: There is mild atherosclerotic calcification of the abdominal aorta and iliac arteries. No aneurysmal dilatation of the abdominal aorta. There is dilatation of the portal and splenic veins, consistent with portal hypertension. Lymph nodes: Nonspecific inguinal lymph nodes are identified bilaterally. No significant retroperitoneal or intrapelvic lymphadenopathy. Bladder: Unremarkable as visualized. Reproductive: The prostate is enlarged. Bones/joints: Hypertrophic degenerative changes are noted within the spine. Soft tissues: There is mild stranding of the subcutaneous tissues of the right ventral abdominal wall, which is likely postoperative or inflammatory. IMPRESSION: 1. The gallbladder is absent. There is stranding within the gallbladder fossa, likely due to recent postoperative change or inflammation. 2. Mild splenomegaly. 3. Mild hypodense fatty infiltration of the liver. Mild hepatomegaly. 4. There is dilatation of the portal and splenic veins, consistent with portal hypertension. 5. Diverticulosis. 6. The prostate is enlarged. 7. Within the tail of the pancreas, there is a nodular focus of isodensity measuring 1.4 x 1.0 cm. This may represent an area of the pancreas without fatty infiltration, although a pancreatic lesion is difficult to exclude. A nonemergent MRI of the abdomen with/without contrast is suggested. 8. Additional findings described above. Electronically signed by: Keyon Mera On 12/04/2018 22:14:21 PM
--- NOTE | 2018-12-05 00:17 | HPEPDOC ---
General Date of Admission 12/05/18 Date of Service: Dec 05, 2018 Primary Care Physician: Nancy Hooker N.P. Attending Physician: MELVIN KESSLER DO Chief Complaint The patient is a 78-year-old male admitted with a reason for visit of FEVER. Source: Patient Exam Limitations: No limitations Timing/Duration: Day(s) Severity: Moderate Associated Symptoms: Chest Pain, Cough, Fever, Chills, Loss of appetite, Shortness of breath, Weakness History of Present Illness Patient is 78 years old male with past mental history of coronary artery di seases, with double bypass surgery in 2007, GERD, hypertension, hyperlipidemia presented hospital with shortness of breath, fever, chills, loss of appetite and weakness. Patient stated that after cholecystectomy which was done 11/22/18 he developed shortness of breath and progressive weakness. Also he started having cough with sputum. He has been having intermittent fever with temperature around 102-103. Patient took Tylenol for fever. In emergency room patient was found to have on chest CAT scan patchy nonspecific ground-glass density within the lungs bilaterally. This is new compared to the prior study. Also he was found to have scattered lung nodules are identified bilaterally, with an overall progression compared to the previous exam. Malignant nodules cannot be excluded. One of the larger nodules is visualized within the right lower lobe measuring 8-9 mm. His white blood count with a normal limit, he doesn't have elevated lactic acid. Home Medications Scheduled Aspirin (Aspir 81) 81 Mg Tab, 81 MG PO DAILY, (Reported) Calcium Polycarbophil (Fibercon) 625 Mg Tablet, 2 TAB PO BID, (Reported) Cyanocobalamin (Cyanocobalamin Injection) 1,000 Mcg/1 Ml Inj, QMONTH, (Reported) Folic Acid (Folic Acid) 1 Mg Tab, DAILY, (Reported) Glucosam/Kai-Msm1/C/Shaheen/Bosw (Osteo Bi-Flex Caplet) 1 Each Tablet, 1 TAB PO DAILY, (Reported) Levothyroxine Sodium (Levothyroxine Sodium) 112 Mcg Tab, DAILY, (Reported) Losartan Potassium (Losartan Potassium) 50 Mg Tab, DAILY, (Reported) Multivitamin (Multivitamins) 1 Each Capsule, 1 CAP PO DAILY, (Reported) Mcbrides-3 Fatty Acids/Fish Oil (Fish Oil 1,000 mg Capsule) 1 Each Capsule, 1,000 MG PO DAILY, (Reported) Omeprazole (Omeprazole) 40 Mg Capsule.dr, 40 MG PO DAILY, (Reported) Pravastatin Sodium (Pravastatin Sodium) 20 Mg Tab, 40 MG PO DAILY, (Reported) Miscellaneous Medications Acetaminophen (Tylenol Extra Strength) 500 Mg Tablet, 500 MG PO, (Reported) Allergies Coded Allergies: No Known Allergies (Unverified , 11/10/18) Past Medical History Medical History Hemorrhoids, GERD, double bypass surgery, hypertension, hyperlipidemia Surgical History Cardiac Double bypass surgery in 2008 Cholecystectomy in 2019 Family History mother had skin cancer, father from heart attack Social History * Smoker: Denies Alcohol: Denies Drugs: denies A-FIB/CHADSVASC A-FIB History Current/History of A-Fib/PAF?: No Current PO Anticoag Therapy: No Review of Systems Constitutional: Reports: Chills, Fever, Weakness, Fatigue Eyes: Denies: Pain, Vision change ENT: Denies: Head Aches, Ear Pain Skin: Denies: Rash, Lesions Pulmonary: Reports: Dyspnea, Cough Cardiovascular: Denies: Chest Pain, Palpitations Gastrointestinal: Denies: Nausea, Vomiting Genitourinary: Denies: Dysuria, Frequency Hematologic: Denies: Bruising Endocrine: Denies: Polydipsia, Polyphagia Musculoskeletal: Denies: Neck Pain, Back Pain Neurological: Denies: Weakness, Numbness Psych: Reports: Mood Normal Physical Examination General Exam: Positive: Alert, Cooperative Eye Exam: Positive: PERRLA ENT Exam: Positive: Atraumatic Neck Exam: Positive: Supple; Negative: JVD Chest Exam: Positive: Diminished Heart Exam: Positive: Rate Normal Telemetry: Positive: No significant arrhythmia Abdomen Exam: Positive: Normal bowel sounds Extremity Exam: Negative: Clubbing, Cyanosis Skin Exam: Negative: Nl turgor and temperature Neuro Exam: Positive: Normal Gait, Strength at 5/5 X4 ext, Cranial Nerves 3-12 NL Psych Exam: Positive: Mental status NL Vital Signs Vital Signs Date Time Temp Pulse Resp B/P (MAP) Pulse Ox O2 Delivery O2 Flow Rate FiO2 12/04/18 23:49 96.5 55 16 102/60 (74) 98 Room Air Laboratory Data Labs 24H Laboratory Tests 2 12/04/18 20:00: Prothrombin Time 14.8H, Prothromb Time International Ratio 1.19, Activated Partial Thromboplast Time 38.8H 12/04/18 20:06: Immature Granulocyte % (Auto) 0.2, White Blood Count 4.8, Red Blood Count 4.04L, Hemoglobin 11.9L, Hematocrit 35.0L, Mean Corpuscular Volume 86.6, Mean Corpuscular Hemoglobin 29.5, Mean Corpuscular Hemoglobin Concent 34.0, Red Cell Distribution Width 12.8, Platelet Count 236, Neutrophils (%) (Auto) 87.3H, Lymphocytes (%) (Auto) 2.7L, Monocytes (%) (Auto) 7.3H, Eosinophils (%) (Auto) 2.3, Basophils (%) (Auto) 0.2, Neutrophils # (Auto) 4.2, Lymphocytes # (Auto) 0.1L, Monocytes # (Auto) 0.4, Eosinophils # (Auto) 0.1, Basophils # (Auto) 0.0, Nucleated Red Blood Cells % (auto) 0.0, Anion Gap 8, Glomerular Filtration Rate > 60.0, Lactic Acid Level 1.1, Blood Urea Nitrogen 14, Creatinine 0.89, Sodium Level 136, Potassium Level 4.5, Chloride Level 101, Carbon Dioxide Level 27, Calcium Level 8.8, Aspartate Amino Transf (AST/SGOT) 39H, Alanine Aminotransferase (ALT/SGPT) 61, Alkaline Phosphatase 263H, Total Bilirubin 0.7, Direct Bilirubin 0.3H, Total Protein 5.9L, Albumin 2.9L, Albumin/Globulin Ratio 0.97L, Lipase 108, Influenza Type A (RT-PCR) NEGATIVE, Influenza Type B (RT-PCR) NEGATIVE 12/04/18 20:21: Urine Color EVARISTO, Urine Appearance HAZY, Urine pH 5.0, Urine Specific [place] 1.024, Urine Protein NEGATIVE, Urine Glucose (UA) NEGATIVE, Urine Ketones NEGATIVE, Urine Blood NEGATIVE, Urine Nitrite NEGATIVE, Urine Bilirubin NEGATIVE, Urine Urobilinogen 0.2, Urine Leukocyte Esterase NEGATIVE, Urine WBC (Auto) 1, Urine RBC (Auto) 3, Urine Hyaline Casts (Auto) 0, Urine Bacteria (Auto) NEGATIVE, Urine Squamous Epithelial Cells 0, Urine Calcium Oxalate Cryst (Auto) MODERATE, Urine Mucus (Auto) SMALL, Urine Sperm (Auto) CBC/BMP Laboratory Tests 12/04/18 20:06 Red Blood Count 4.04 L, Mean Corpuscular Volume 86.6, Mean Corpuscular Hemoglobin 29.5, Mean Corpuscular Hemoglobin Concent 34.0, Red Cell Distribution Width 12.8, Neutrophils (%) (Auto) 87.3 H, Lymphocytes (%) (Auto) 2.7 L, Monocytes (%) (Auto) 7.3 H, Eosinophils (%) (Auto) 2.3, Basophils (%) (Auto) 0.2, Neutrophils # (Auto) 4.2, Lymphocytes # (Auto) 0.1 L, Monocytes # (Auto) 0.4, Eosinophils # (Auto) 0.1, Basophils # (Auto) 0.0, Calcium Level 8.8, Aspartate Amino Transf (AST/SGOT) 39 H, Alanine Aminotransferase (ALT/SGPT) 61, Alkaline Phosphatase 263 H, Total Bilirubin 0.7, Direct Bilirubin 0.3 H, Total Protein 5.9 L, Albumin 2.9 L Microbiology Microbiology 12/04/18 Blood Culture, Received Pending 12/04/18 Blood Culture, Received Pending Assessment/Plan Patient is 78 years old male with past medical history of double bypass, hyperlipidemia presented hospital with cough, shortness of breath, patient was found to have bilateral groundglass densities of his lungs on the CAT scan Problems (1) Pneumonia Status: Acute Problem Text: Most likely community-acquired pneumonia which patient developed after upper respiratory viral infection CAT scan shows bilateral groundglass opacities, could represent atypicals. Azithromycin IV, ceftriaxone IV Prednisone 40 mg by mouth Incentive spirometry Urine antigen Streptococcus/Legionella Mycoplasma immunoglobin M (2) Lung nodule seen on imaging study Status: Chronic Problem Text: Chest CT showed scattered lung nodules are identified bilaterally, with an overall progression compared to the previous exam. Malignant nodules cannot be excluded. Patient has never had history of smoking. Patient will need repeat CAT scan in 3-6 months. Follow-up with oncologist in the outpatient settings (3) Pancreatic abnormality Status: Chronic Problem Text: Patient was found to have on the abdominal CAT scan within the tail of the pancreas, there is a nodular focus of isodensity measuring 1.4 x 1.0 cm. This may represent an area of the pancreas without fatty infiltration, although a pancreatic lesion is difficult to exclude. A nonemergent MRI of the abdomen with/without contrast in the outpatient settings Plan / VTE VTE Prophylaxis Ordered?: Yes MELVIN KESSLER DO Dec 05, 2018 00:17
[2018-12-05] MEDS: NS 1,000 ML IV SCH ×2 (00:37→11:18)
[2018-12-05] MEDS: cefTRIAXone SOD 2 GM in D5W MINI-BAG PLUS 50 ML IV SCH (00:37)
[2018-12-05] MEDS: AZITHROMYCIN INJ 500 MG, VIAL MATE ADAPTER 1 EACH in D5W 250 ML IV SCH (04:11)
[2018-12-05 04:50] VITALS: BP 134/71
--- NOTE | 2018-12-05 07:25 | REP ---
PA and lateral chest: Comparison is the portable chest dated 06/29/2018. There is mild interstitial coarsening as an interval change. There are sternotomy wires. This is unchanged. Cardiac size is upper normal, unchanged. The isak, mediastinum, skeletal structures are unremarkable. Impression: Mild interstitial coarsening as an interval change. Electronically Signed by Vaibhav Armenta MD 12/05/2018 07:16 A
[2018-12-05 08:00] VITALS: BP 134/74
--- NOTE | 2018-12-05 08:40 | IPNPDOC ---
Text Note Date of Service The patient was seen on 12/05/18. NOTE HPI: Patient is 78 yo male with PMH of CAD with double bypass surgery in 2007, GERD, HTN, hyperlipidemia, and recent cholecystectomy 11/22/18 presented [facility] due to d yspnea, productive cough, night sweats, fever, chills, loss of appetite and weakness that had been developing since then. Reported intermittent fever around 102 [id number]. Pt currently still reporting productive cough with generalized weakness and decreased appetite. Reported night sweats the night prior. He reported constipation, stating only had 2 BM since the cholecystectomy surgery ROS: General: pos for fever and night sweats. Pos for generalized weakness Lung: pos for productive cough Heart: denies chest pain, palpitation GI: pos for loss appetite, constipation, denies diarrhea and hematochezia Objective: General: alert and awake, not in acute distress Heart: RRR, no murmur, normal S1 and S2 Lung: RLQ coarse crackles, no wheezing or rhonchi Abdomen: soft, bowel sound aus in 4 quad, no tenderness in all 4 quad, no guarding or distention. No accessory muscle use noted Extremities: no edema. No tenderness in b/l LE Assessment and Plan: 1. Pneumonia -recent hospital visit 11/22/18 -CT chest shows bilateral ground glass opacities -Per team discussion, as pt symptomatically improving, we will cont Azithromycin IV and Ceftriaxone IV at this time -Cont Prednisone 40 mg QD at this time, consider down-titrating -Cont Incentive spirometry -Urine antigen Streptococcus/Legionella, and mycoplasma immunoglobin M pending 2. Scattered lung nodule bilaterally -Chest CT showed scattered lung nodules are identified bilaterally, with an overall progression compared to the previous exam. Malignant nodules cannot be excluded -No history of smoking, repeat CT chest scan in 3-6 months outpatient - Discussed the results of imaging with the patient was verbalized understanding; has acknowledged the importance of follow-up imaging 3. Medical history of CAD s/p double bypass surgery -Resume home med statin, aspirin, and Losartan 4. Hypertension -resume home med Lorsartan and statin 5. hyperlipidemia - home med statin 6. Pancreatic abnormality - abdominal CT shows a nodular focus of isodensity measuring 1.4 x 1.0 cm within the tail of the pancreas, there is a which may be fatty infiltration but a pancreatic lesion is difficult to exclude. -consider nonemergent MRI of the abdomen with/without contrast outpt - Discussed the results of imaging with the patient was verbalized understanding; has acknowledged the importance of follow-up imaging DVT prophylaxis: heparin Regular diet VS,Fishbone, I+O VS, Fishbone, I+O Laboratory Tests 12/04/18 20:06 Red Blood Count 4.04 L, Mean Corpuscular Volume 86.6, Mean Corpuscular Hemoglobin 29.5, Mean Corpuscular Hemoglobin Concent 34.0, Red Cell Distribution Width 12.8, Neutrophils (%) (Auto) 87.3 H, Lymphocytes (%) (Auto) 2.7 L, Monocytes (%) (Auto) 7.3 H, Eosinophils (%) (Auto) 2.3, Basophils (%) (Auto) 0.2, Neutrophils # (Auto) 4.2, Lymphocytes # (Auto) 0.1 L, Monocytes # (Auto) 0.4, Eosinophils # (Auto) 0.1, Basophils # (Auto) 0.0, Calcium Level 8.8, Aspartate Amino Transf (AST/SGOT) 39 H, Alanine Aminotransferase (ALT/SGPT) 61, Alkaline Phosphatase 263 H, Total Bilirubin 0.7, Direct Bilirubin 0.3 H, Total Protein 5.9 L, Albumin 2.9 L Vital Signs Date Time Temp Pulse Resp B/P (MAP) Pulse Ox O2 Delivery O2 Flow Rate FiO2 12/05/18 04:50 98.1 78 18 134/71 (92) 95 12/04/18 23:49 Room Air I&O- Last 24 Hours up to 6 AM 12/05/18 06:00 Intake Total 1000 ml Output Total 175 ml Balance 825 ml GME ATTESTATION GME ATTESTATION My faculty preceptor for this patient encounter was physically present during the encounter and was fully available. All aspects of the patient interview, e xamination, medical decision making process, and medical care plan development were reviewed and approved by the faculty preceptor. The faculty preceptor is aware and concurs with the plan as stated in the body of this note and will attest to such by his/her cosignature. ATTENDING NOTE I, Shania Ansari, have independently examined this patient and performed my own physical exam, as well as reviewed the documentation and edited where necessary. I have discussed in detail with the resident / student the findings and plan of treatment as documented by the resident / student and edited their note. I agree with their findings and treatment plan and have edited their documentation. I will continue to follow the patient during this hospital stay. JACK AVENDANO DO Dec 05, 2018 08:40 SHANIA ANSARI MD Dec 05, 2018 15:32
[2018-12-05] MEDS: OMEPRAZOLE 20 MG CAP PO SCH ×2 (09:15→20:21)
[2018-12-05] MEDS: predniSONE 20 MG TAB PO SCH (09:16)
[2018-12-05] MEDS: OMEGA-3 1000MG CAPSULE PO SCH (09:16)
[2018-12-05] MEDS: MULTIVITAMINS/MINERALS THERAP 1 TAB PO SCH (09:16)
[2018-12-05] MEDS: HEPARIN SOD (PORCINE) 5000 UNITS/ML VIAL SC SCH ×2 (09:18→20:21)
[2018-12-05] MEDS ORDERED: POLYETHYLENE GLYCOL (MIRALAX) 238GM BOTTLE PO ONE (10:00)
[2018-12-05] MEDS: LEVOTHYROXINE 112MCG TABLET (0.112MG) PO SCH (11:17)
[2018-12-05] MEDS ORDERED: MIRALAX *UNIT DOSE* 17GM PACKET PO PRN (11:30)
[2018-12-05 12:00] VITALS: BP 119/69
[2018-12-05 16:00] VITALS: BP 108/64
[2018-12-05] MEDS ORDERED: SLF 3 ML SYR IV PRN (16:00)
[2018-12-05 20:00] VITALS: BP 126/68
[2018-12-05 20:22] VITALS: BP 126/68
[2018-12-05] MEDS: SLF 3 ML SYR IV SCH (20:22)
[2018-12-05] MEDS ORDERED: ASPIRIN 81 MG ENTERIC TAB PO SCH (21:00)
[2018-12-05] MEDS ORDERED: FOLIC ACID 1 MG TAB PO SCH (21:00)
[2018-12-05] MEDS ORDERED: FIBER-CON 625 MG TAB PO SCH (21:00)
[2018-12-05] MEDS ORDERED: PRAVASTATIN 20 MG TAB PO SCH (21:00)
[2018-12-05] MEDS ORDERED: LOSARTAN 50 MG TAB PO SCH (21:00)
[2018-12-06] MEDS: cefTRIAXone SOD 2 GM in D5W MINI-BAG PLUS 50 ML IV SCH (01:44)
[2018-12-06] MEDS: AZITHROMYCIN INJ 500 MG, VIAL MATE ADAPTER 1 EACH in D5W 250 ML IV SCH (03:52)
[2018-12-06 04:00] VITALS: BP 122/62
[2018-12-06] MEDS: SLF 3 ML SYR IV SCH (05:39)
[2018-12-06] MEDS: LEVOTHYROXINE 112MCG TABLET (0.112MG) PO SCH (05:39)
[2018-12-06 05:53] LABS: HEMATOCRIT 30.7 % (42.0-52.0); HEMOGLOBIN 10.3 g/dl (13.5-17.5); MEAN CORPUSCULAR HEMOGLOBIN 28.5 pg (27.0-33.0); MEAN CORPUSCULAR HGB CONC 33.6 g/dl (32.0-36.5); MEAN CORPUSCULAR VOLUME 84.8 fl (80.0-96.0); PLATELET COUNT, AUTOMATED 225 10^3/uL (150-450); RED BLOOD COUNT 3.62 10^6/uL (4.30-6.10); WHITE BLOOD COUNT 4.1 10^3/uL (4.0-10.0)
[2018-12-06 06:11] LABS: BLOOD UREA NITROGEN 12 MG/DL (7-18); CALCIUM LEVEL 8.8 MG/DL (8.8-10.2); CARBON DIOXIDE LEVEL 25 MEQ/L (21-32); CHLORIDE LEVEL 107 MEQ/L (98-107); CREATININE FOR GFR 0.77 MG/DL (0.70-1.30); GLOMERULAR FILTRATION RATE > 60.0 (>42); GLUCOSE, FASTING 134 MG/DL (70-100); MAGNESIUM LEVEL 2.5 MG/DL (1.8-2.4); POTASSIUM SERUM 3.2 MEQ/L (3.5-5.1); SODIUM LEVEL 139 MEQ/L (136-145)
[2018-12-06] MEDS: OMEPRAZOLE 20 MG CAP PO SCH (08:00)
[2018-12-06] MEDS: MULTIVITAMINS/MINERALS THERAP 1 TAB PO SCH (08:00)
[2018-12-06] MEDS: predniSONE 20 MG TAB PO SCH (08:00)
[2018-12-06] MEDS: HEPARIN SOD (PORCINE) 5000 UNITS/ML VIAL SC SCH (08:00)
[2018-12-06] MEDS ORDERED: POTASSIUM CHLORIDE 10 MEQ SR TABLET PO ONE (08:00)
[2018-12-06] MEDS: OMEGA-3 1000MG CAPSULE PO SCH (08:00)
[2018-12-06] MEDS ORDERED: MIRALAX *UNIT DOSE* 17GM PACKET PO PRN (09:00)
[2018-12-06] MEDS ORDERED: PRED5PAK2 PO (11:26)
[2018-12-06] MEDS ORDERED: AZIT500T2 PO (11:26)
[2018-12-06] MEDS ORDERED: CEFD1CAP8 PO (11:26)
--- NOTE | 2018-12-06 11:34 | DS.PDOC ---
Discharge Summary General Date of Admission Dec 05, 2018 at 03:24 Date of Discharge 12/06/18 Discharge Summary PROCEDURES PERFORMED DURING STAY: None. 1. Pneumonia 2. Lung nodule seen on imaging study 3. Pancreatic abnormality DISCHARGE DIAGNOSES: 1. Pneumonia 2. Scattered lung nodule bilaterally 3. Medical history of CAD s/p double bypass surgery 4. Hypertension 5. hyperlipidemia 6. Pancreatic abnormality COMPLICATIONS/CHIEF COMPLAINT: Lung Nodule, Pneumonia, Pancreatic Abnormality. HISTORY OF PRESENT ILLNESS: Patient is 78 yo male with PMH of CAD with double bypass surgery in 2007, GERD, HTN, hyperlipidemia, and recent cholecystectomy 11/22/18 presented [facility] due to dyspnea, productive cough, night sweats, fever, chills, loss of appetite and weakness that had been developing since then. Reported intermittent fever around 102 [id number]. HOSPITAL COURSE: His CT chest shows bilateral ground glass opacities; scattered lung nodule bilaterally with overall progression compared to the previous exam was also noted. His CT abd/pelvis shows a nodular isodensity lesion at the tail of the pancreas. Pt was admitted to the hospital and was started on Ceftriaxone and Azithromycin as well as prednisone. His symptoms including fever, chills, night sweats, cough, generalized weakness, and nausea improved. He initially reported constipation as he only had 2 BM since the cholecystectomy, and Miralax was started. Discussed extensively with patient regarding his CT chest and abd/pelvis result, and he was aware of the lung nodule stating he has been following a pulm outpt. Discussed with patient that per recommendation based on CT chest result; repeat CT chest in 3-6 months is recommended. Pt is also discussed about his pancreatic tail nodular isodensity lesion and verbalized he will discuss the imaging abnormality with his PCP and service aide. On the day of discharge, pt reported no symptoms including non-productive cough and stated he had 2 BM the day prior to discharge. It was noted that pt had hypokalemia thus KCl was repleted. DISCHARGE MEDICATIONS: Please see below. ALLERGIES: Please see below. PHYSICAL EXAMINATION ON DISCHARGE: VITAL SIGNS: Please see below. GENERAL: A&OX3, not in acute distress, pleasant and cooperative HEENT: Head normocephalic, atraumatic NECK: supple CARDIOVASCULAR EXAMINATION: RRR, no murmur, normal S1 and S2 RESPIRATORY EXAMINATION: CTA b/l, no rales, wheezing, or rhonchi ABDOMINAL EXAMINATION: soft, bowel sound aus in all quad, no guarding or d istention EXTREMITIES: no edema or tenderness NEUROLOGICAL EXAMINATION: Memory and cognitive fx grossly intact PSYCHIATRIC EXAMINATION: Mood stable and appropriate to situation LABORATORY DATA: Please see below. IMAGING: CT chest: New patchy lung ground-glass density bilaterally. Scattered lung n odules bilaterally progressed compared to the previous exam; one of the larger nodules on right lower lobe measuring 8-9 mm; recommend CT at 3-[address] abd/pelvis abdominal CT shows a nodular focus of isodensity measuring 1.4 x 1.0 cm within the tail of the pancreas; fatty infiltration but a pancreatic lesion is difficult to exclude. PROGNOSIS: Fair to good ACTIVITY: As tolerated. DIET: 2g Na diet DISCHARGE PLAN AND INSTRUCTIONS: Please follow up with PCP in 7 days. Please follow up with service aide within 7- 10 days. Patient will discuss with PCP and service aide for lung nodules and pancreatic isodensity lesions which he verbalized understanding and agreement. Patient will finish the Cefdinir, Azithromycin, and steroid taper pack as prescribed ITEMS TO FOLLOWUP ON ON OUTPATIENT: 1. Pneumonia 2. Lcattered lung nodule bilaterally 3. Pancreatic abnormality DISCHARGE CONDITION: Stable. I saw and evaluated the patient. I agree with the findings and plan of care as d ocumented in the documenters note. I spent 45 minutes coordinating this patient's discharge. Vital Signs/I&Os Vital Signs Date Time Temp Pulse Resp B/P (MAP) Pulse Ox O2 Delivery O2 Flow Rate FiO2 12/06/18 08:00 97.1 54 20 96 12/06/18 04:00 122/62 (82) 12/04/18 23:49 Room Air I&O- Last 24 Hours up to 6 AM 12/06/18 05:59 Intake Total 2885 ml Output Total 2850 ml Balance 35 ml Laboratory Data Labs 24H Laboratory Tests 2 12/06/18 05:00: Nucleated Red Blood Cells % (auto) 0.0, Anion Gap 7L, Glomerular Filtration Rate > 60.0, Blood Urea Nitrogen 12, Creatinine 0.77, Sodium Level 139, Potassium Level 3.2#L, Chloride Level 107, Carbon Dioxide Level 25, Calcium Level 8.8, Magnesium Level 2.5H CBC/BMP Laboratory Tests 12/06/18 05:00 Red Blood Count 3.62 L, Mean Corpuscular Volume 84.8, Mean Corpuscular Hemoglo bin 28.5, Mean Corpuscular Hemoglobin Concent 33.6, Red Cell Distribution Width 12.7, Calcium Level 8.8 Microbiology Microbiology 12/04/18 Blood Culture - Preliminary, Resulted No growth after 24 hours . All specim... 12/04/18 Blood Culture - Preliminary, Resulted No growth after 24 hours . All specim... 12/05/18 MRSA Screen, Received Pending 12/05/18 Respiratory Virus Panel (PCR) (JUAN) - Final, Complete Discharge Medications Scheduled Aspirin (Aspir 81) 81 Mg Tab, 81 MG PO QPM, (Reported) Azithromycin (Azithromycin) 500 Mg Tablet, 1 TAB PO DAILY Calcium Polycarbophil (Fibercon) 625 Mg Tablet, 625 MG PO QPM, (Reported) Cefdinir (Cefdinir) 300 Mg Capsule, 300 MG PO BID Cyanocobalamin (Cyanocobalamin Injection) 1,000 Mcg/1 Ml Inj, 1,000 MCG IM QMONTH, (Reported) Folic Acid (Folic Acid) 1 Mg Tab, 1 MG PO QPM, (Reported) Glucosam/Kai-Msm1/C/Shaheen/Bosw (Osteo Bi-Flex Caplet) 1 Each Tablet, 1 TAB PO QPM, (Reported) Levothyroxine Sodium (Levothyroxine Sodium) 112 Mcg Tab, 112 MCG PO QAM, (Reported) Losartan Potassium (Losartan Potassium) 50 Mg Tab, 50 MG PO QHS, (Reported) Multivitamin (Multivitamins) 1 Each Capsule, 1 CAP PO QPM, (Reported) Felicity-3 Fatty Acids/Fish Oil (Fish Oil 1,000 mg Capsule) 1 Each Capsule, 1,000 MG PO QPM, (Reported) Omeprazole (Omeprazole) 40 Mg Capsule.dr, 40 MG PO BID, (Reported) Pravastatin Sodium (Pravastatin Sodium) 20 Mg Tab, 40 MG PO QHS, (Reported) Prednisone (Prednisone) 5 Mg Tab.ds.pk, 0 PO ASDIRECTED 6 day dose pack taper Scheduled PRN Acetaminophen (Tylenol Extra Strength) 500 Mg Tablet, 500 MG PO Q4H PRN for PAIN / FEVER, (Reported) Allergies Coded Allergies: No Known Allergies (Unverified , 11/10/18) JACK AVENDANO DO Dec 06, 2018 11:34 GONZALO CHURCH MD Dec 07, 2018 12:07
[2018-12-09 00:06] LABS: BODY FLUID CULTURE Not Indicated (.); LEGIONELLA ANTIGEN URINE Negative (Negative); ORGANISM ID Not indicated. (.); SPECIMEN SOURCE Urine (.); URINE STREP PNEUMONIAE ANTIGEN Negative (Negative)
== END 2018-12-06 13:43 | disposition home or self-care (01) | DRG 195 ==
LOC: M ED 18:45 → M ED INP 12-05 03:24 → M PCU 12-05 04:57
PROVIDERS: ADMIT Internal Medicine; ATTEND Internal Medicine
DX: J18.9 Pneumonia, unspecified organism (principal); R91.8 Other nonspecific abnormal finding of lung field; K86.89 Other specified diseases of pancreas; I25.10 Atherosclerotic heart disease of native coronary artery without angina pectoris; K21.9 Gastro-esophageal reflux disease without esophagitis; I10 Essential (primary) hypertension; E87.6 Hypokalemia; E78.5 Hyperlipidemia, unspecified; Z95.1 Presence of aortocoronary bypass graft; Z79.82 Long term (current) use of aspirin; Z79.899 Other long term (current) drug therapy; Z90.49 Acquired absence of other specified parts of digestive tract

== ENCOUNTER → 2018-12-30 | Outpatient (CLI) | payer MEDICARE, OTHER ==
[~2018-12-30] MED LIST changes: +ACET-897 PO; +AZIT500T5 PO; +CEFD1CAP8 PO; +FIBE625T PO; -OMEP40CA2 PO; +OMEP40CA97 PO; +PRED5PAK2 PO; +PROHANCE 279.3MG/ML 15ML VIAL (A9576) As Ordered ONE
--- NOTE | 2018-12-30 17:30 | REP ---
MRI ABDOMEN WITH AND WITHOUT CONTRAST: MRI abdomen performed with special attention to the pancreas. TECHNIQUE: Multiple sequences obtained in the axial and coronal planes prior to and following the intravenous administration of 14 mL ProHance. Correlation made with prior CT, 12/04/2018, which showed possible lesion in the tail of the pancreas. The pancreas shows diffuse fatty infiltration. There is relative sparing at the distal tail of the pancreas. There is no mass at this location. There is no pancreatic duct dilatation. The common bile duct is normal in caliber. The patient has had a prior cholecystectomy. Liver, spleen, adrenals, and kidneys are otherwise unremarkable. There is no adenopathy or free fluid in the abdomen. IMPRESSION: Diffuse fatty replacement of the pancreas. No evidence of pancreatic mass or adenopathy. Electronically Signed by Vaibhav Abrams MD 01/03/2019 08:59 A
== END ==
LOC: M RAD 15:26
PROVIDERS: ATTEND Nurse Practitioner Family
DX: R10.9 Unspecified abdominal pain (principal)
CPT/HCPCS: 74183; A9576

== ENCOUNTER → 2019-01-02 | Outpatient (CLI) | payer MEDICARE, OTHER ==
[~2019-01-02] MED LIST changes: -PROHANCE 279.3MG/ML 15ML VIAL (A9576) As Ordered ONE
--- NOTE | 2019-01-02 12:53 | REP ---
CT chest without contrast: History: Abnormal lung field finding. Comparison CT study is from December 04, 2018. There is in June 29, [address] as [address] CT findings: The patient is status post prior median sternotomy. There are multiple mediastinal clips. There is no evidence of mediastinal mass or adenopathy. No pleural or pericardial effusion is seen. There is a focal area of consolidation in the right lower lobe adjacent to the azygoesophageal recess. This it is essentially unchanged from the December 04, 2018 study. It is slightly more pronounced than on the June 29, 2018 study. There is a fissural nodule in the major fissure on the right. This is unchanged from the April 2018 and the November 2018 study. The ground-glass opacity pattern of infiltrate seen on December 04, 2018 has improved. There are still some small patchy ground-glass opacities in the upper lobes bilaterally. These appear inflammatory. Impression: Bilateral infiltrate pattern is improved from December 04, 2018. There is a chronic infiltrate in the right lower lobe medial basal segment adjacent to the azygoesophageal line. Stable fissural or favio-fissural nodules. Prior sternotomy. Electronically Signed by Nader Kuhn MD 01/02/2019 01:56 P
== END ==
LOC: M RAD 09:46
PROVIDERS: ATTEND Internal Medicine Pulmonary Disease
DX: R91.8 Other nonspecific abnormal finding of lung field (principal)

== ENCOUNTER → 2019-10-09 | Outpatient (CLI) | payer MEDICARE, OTHER ==
[~2019-10-09] MED LIST changes: -ASPI81TA85 PO; +ASPI81TA86 PO
--- NOTE | 2019-10-09 10:33 | REP ---
Clinical: Follow up abnormal lung findings/infiltrates. Comparison: 01/02/2019, 06/29/2018. Findings: Previously identified multifocal infiltrates have resolved. Small perifissural densities involving the bilateral major fissures remain unchanged and likely represent chronic findings. Small area of scarring in the medial right lower lobe at the azygoesophageal recess remains unchanged. No acute consolidation, nodule, effusion, or pneumothorax. Tracheobronchial tree is patent. No obvious adenopathy. Mediastinum demonstrates stable cardiomegaly and atherosclerotic disease along with evidence for prior CABG. No pericardial effusion. Surrounding musculoskeletal structures without acute osseous abnormality. Limited upper abdomen demonstrates normal bilateral adrenal glands. Impression: Minimal scattered chronic changes. Previously noted multifocal infiltrates have resolved. Electronically Signed by Tank Joshi MD 10/09/2019 10:24 A
== END ==
LOC: M RAD 09:44
PROVIDERS: ATTEND Internal Medicine Pulmonary Disease
DX: R91.8 Other nonspecific abnormal finding of lung field (principal)

== ENCOUNTER 2020-01-24 07:11 | Emergency (ER) | payer MEDICARE, OTHER ==
[~2020-01-24] VITALS: Ht 167.6 cm; Wt 82.4 kg
--- NOTE | 2020-01-24 08:16 | REP ---
INDICATION: fall. COMPARISON: None. TECHNIQUE: Four views. FINDINGS: Four views of the right hand demonstrate overall normal mineralization. There is mild soft tissue swelling and irregularity on the lateral film dorsally over the carpals and metacarpals. there is evidence of a dorsal carpal chip fracture consistent with a dorsal triquetral chip fracture on the lateral radiograph. This is not seen on other views. There is mild osteoarthritic change. Soft tissue swelling is seen along the index finger proximal phalanx and PIP. No other fracture seen.. IMPRESSION: Probable dorsal triquetral chip fracture visible on lateral radiograph. Dorsal soft tissue swelling and soft tissue swelling along the index finger. Osteoarthritic changes.. <Electronically signed by Gabriel Kuhn > 01/24/20 [id number]
--- NOTE | 2020-01-24 08:18 | REP ---
INDICATION: fall. COMPARISON: None. TECHNIQUE: Four views. FINDINGS: Four views right wrist demonstrate soft tissue swelling dorsally over the metacarpals with the small bone density on the lateral radiograph consistent with a dorsal chip fracture of the triquetrum. Lateral radiograph also sella shows irregularity in the dorsal metaphysis and articular margin of the radius consistent with a intra-articular distal radial fracture. The distal ulna appears intact. 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 IMPRESSION: Findings consistent with dorsal triquetral chip fracture and intra-articular fracture of the dorsal aspect of the distal radius. <Electronically signed by Gabriel Kuhn > 01/24/20 0818
[2020-01-24 09:44] VITALS: BP 150/80
== END 2020-01-24 09:46 | disposition home or self-care (01) ==
LOC: M ED 07:11
DX: S62.114A Nondisplaced fracture of triquetrum [cuneiform] bone, right wrist, initial encounter for closed fracture (principal); S52.571A Other intraarticular fracture of lower end of right radius, initial encounter for closed fracture; W01.0XXA Fall on same level from slipping, tripping and stumbling without subsequent striking against object, initial encounter; Y92.89 Other specified places as the place of occurrence of the external cause; I11.9 Hypertensive heart disease without heart failure; E03.9 Hypothyroidism, unspecified; E78.5 Hyperlipidemia, unspecified; K21.9 Gastro-esophageal reflux disease without esophagitis; Z95.1 Presence of aortocoronary bypass graft; Z79.899 Other long term (current) drug therapy; Z79.82 Long term (current) use of aspirin

== ENCOUNTER 2021-12-11 05:48 | Emergency (ER) | payer MEDICARE, OTHER ==
[~2021-12-11] VITALS: Ht 167.6 cm; Wt 82.4 kg
[~2021-12-11 05:48] MED LIST changes: -CEFD1CAP8 PO; +CEFD300C41 PO; +LOSA50TA28 PO; -LOSA50TA88 PO; +OMEP40CA4 PO; -OMEP40CA97 PO; -SIME180C PO; +SIME180C25 PO
[2021-12-11] MEDS ORDERED: BENZONATATE 100MG CAPSULE PO ONE (08:45)
[2021-12-11] MEDS ORDERED: NS 1,000 ML IV ONE (08:45)
[2021-12-11 09:41] LABS: BASO % 0.1 % (0.0-1.0); EOS % 0.4 % (0.0-3.0); HEMATOCRIT 38.6 % (42.0-52.0); HEMOGLOBIN 12.9 g/dl (13.5-17.5); LYMPH # 0.6 10^3/uL (1.5-5.0); LYMPH % 8.1 % (24.0-44.0); MEAN CORPUSCULAR HEMOGLOBIN 30.4 pg (27.0-33.0); MEAN CORPUSCULAR HGB CONC 33.4 g/dl (32.0-36.5); MEAN CORPUSCULAR VOLUME 90.8 fl (80.0-96.0); MONO # 0.7 10^3/uL (0.0-0.8); MONO % 9.7 % (2.0-8.0); NEUTROPHILS # 5.7 10^3/uL (1.5-8.5); NEUTROPHILS % 81.3 % (36.0-66.0); PLATELET COUNT, AUTOMATED 153 10^3/uL (150-450); RED BLOOD COUNT 4.25 10^6/uL (4.30-6.10)
[2021-12-11 10:30] LABS: BLOOD UREA NITROGEN 12 MG/DL (7-18); CALCIUM LEVEL 8.9 MG/DL (8.8-10.2); CARBON DIOXIDE LEVEL 29 MEQ/L (21-32); CHLORIDE LEVEL 103 MEQ/L (98-107); CREATININE FOR GFR 0.91 MG/DL (0.70-1.30); FREE T4 1.41 NG/DL (0.76-1.46); GLOMERULAR FILTRATION RATE > 60.0 (>42); GLUCOSE, FASTING 107 MG/DL (70-100); MAGNESIUM LEVEL 2.3 MG/DL (1.8-2.4); POTASSIUM SERUM 4.2 MEQ/L (3.5-5.1); SODIUM LEVEL 136 MEQ/L (136-145)
[2021-12-11] MEDS ORDERED: BENZ200C70 PO (10:38)
[2021-12-11 11:15] VITALS: BP 132/83
== END 2021-12-11 11:32 | disposition home or self-care (01) ==
LOC: M ED 05:48
DX: R94.6 Abnormal results of thyroid function studies (principal); B34.8 Other viral infections of unspecified site; R55 Syncope and collapse; R91.8 Other nonspecific abnormal finding of lung field; I11.9 Hypertensive heart disease without heart failure; Z90.49 Acquired absence of other specified parts of digestive tract; Z79.82 Long term (current) use of aspirin; Z79.899 Other long term (current) drug therapy